=== PATIENT | female | born 1965 | race Caucasian/White ===

== ENCOUNTER → 2019-02-23 | Outpatient (CLI) | payer OTHER ==
[~2019-02-23] MED LIST: NORCO 5-325 TA1 EACH PO; NORFLEX100 MG PO
== END ==
LOC: M.RAD 14:00 → M.ULTRA 14:30
DX: N64.4 Mastodynia (principal)

== ENCOUNTER → 2020-09-30 | Outpatient (CLI) | payer OTHER | LOC: M.RAD 16:24 | PROVIDERS: ATTEND Internal Medicine | DX: M47.812 Spondylosis without myelopathy or radiculopathy, cervical region (principal); M54.2 Cervicalgia; M54.10 Radiculopathy, site unspecified ==

== ENCOUNTER 2020-11-06 10:05 | Emergency (ER) | payer OTHER ==
[~2020-11-06] VITALS: Ht 167.6 cm; Wt 90.7 kg
[2020-11-06] MEDS ORDERED: FLEXERIL PO (10:20)
[2020-11-06] MEDS ORDERED: ZESTRIL10 MG PO (10:20)
[2020-11-06] MEDS ORDERED: IBU600 MG PO (11:20)
[2020-11-06] MEDS ORDERED: AUGMENTIN 875-1 EACH PO (11:20)
[2020-11-06] MEDS ORDERED: NORCO5 PO (11:25)
[2020-11-06] MEDS ORDERED: IMOVAX RABIE2.5 UNI1 IM (11:59)
[2020-11-06 12:07] VITALS: BP 147/93
== END 2020-11-06 12:09 | disposition home or self-care (01) ==
LOC: M.ERS 10:05
DX: S41.052A Open bite of left shoulder, initial encounter (principal); S61.451A Open bite of right hand, initial encounter; Z20.3 Contact with and (suspected) exposure to rabies; W53.21XA Bitten by squirrel, initial encounter; Y93.89 Activity, other specified; Y92.89 Other specified places as the place of occurrence of the external cause; Y99.8 Other external cause status

== ENCOUNTER → 2020-11-09 | Outpatient (CLI) | payer OTHER ==
[~2020-11-09] MED LIST changes: +AUGMENTIN 875-1 EACH PO; +FLEXERIL PO; +IBU600 MG PO; +IMOVAX RABIE2.5 UNI1 IM; +NORCO5 PO; +ZESTRIL10 MG PO
== END ==
LOC: M.ERS 10:28
DX: Z23 Encounter for immunization (principal)

== ENCOUNTER → 2020-11-13 | Outpatient (CLI) | payer OTHER | LOC: M.OPS 08:47 | DX: Z23 Encounter for immunization (principal) ==

== ENCOUNTER → 2020-11-20 | Outpatient (CLI) | payer OTHER | LOC: M.OPS 09:06 | DX: Z23 Encounter for immunization (principal) ==

== ENCOUNTER → 2020-12-04 | Outpatient (CLI) | payer OTHER | LOC: M.OPS 09:03 | DX: Z23 Encounter for immunization (principal) ==